=== PATIENT | female | born 1995 | race Caucasian/White ===

== ENCOUNTER 2017-10-30 18:48 | Observation (INO) ==
--- NOTE | 2017-10-30 19:39 | Emergency Department Note ---
Disposition Clinical Impression: Chest pain Qualifiers: Chest pain type: unspecified Qualified Code(s): R07.9 - Chest pain, unspecified Disposition: Home, Self-Care Condition: Good Referrals: NONE,PCP [Primary Care Provider] - Forms: ED Satisfaction Letter Time of Disposition: :33 Arrhythmia/Palpitations HPI - General Chief Complaint: ED Arrhythmia/Palpitations Stated Complaint: racing heart Time Seen by Provider: 10/30/17 19:04 Source: patient Limitations: no limitations Nursing Notes Reviewed: Yes Vital Signs Reviewed: Yes - History of Present Illness HPI Narrative: This is a 22 year-old female with history of anxiety, and clotting disorder ( "like von Willebrand's disease") who presents with palpitations ("heart racing") , which began about 45 minutes prior to arrival, shortly after patient got to work. Associated with dizziness, substernal chest tightness, dyspnea, bilateral digital paresthesias, and carpal spasm. A co-worker checked her pulse and it was 180. At the time of evaluation, symptoms are improving. Patient has been taking Adipex for the past month, with last dose about 2 hours prior to symptom onset. Patient denies any fever, cough, nausea, vomiting, leg pain or swelling. No history of DVT or PE. Although patient has a bleeding tendency, she denies any recent bleeding. Pt Subjective Complaint: "heart racing" Onset (ago): minute(s) (45) Severity: moderate Context: other (occurred during light activity) Arrhythmia History: other (stimulant use (Adipex)) - Related Data Home Medications Medication Instructions Recorded Confirmed Nuvaring Vaginal Ring 05/07/15 Stimate 05/07/15 Vicks Nyquil Cough Liquid 05/07/15 Previous Rx's Medication Instructions Recorded Amoxicillin 875 mg PO BID #20 tablet 05/07/15 Lidocaine Patch [Lidoderm 5% patch] 1 each TP DAILY PRN #10 adh..patch 09/14/17 Allergies Allergy/AdvReac Type Severity Reaction Status Date / Time ibuprofen AdvReac See Verified 10/30/17 18:53 Comments All systems ED: reviewed and negative except as stated. Constitutional: Denies: fever Cardiovascular: Reports: as per HPI, chest pain, palpitations. Denies: edema, syncope Respiratory: Reports: dyspnea. Denies: cough, hemoptysis Gastrointestinal: Denies: abdominal pain, nausea, vomiting Genitourinary: Denies: abnormal menses Musculoskeletal: Denies: back pain, neck pain Neurological: Reports: as per HPI, paresthesias. Denies: headache, weakness, vertigo Psychiatric: Reports: anxiety Past Medical History - Past Medical History Medical history: Reports: other Psychiatric history: Reports: anxiety - Social History Smoking Status: Never smoker Smokeless Tobacco Status: No Alcohol use: Reports: occasionally Drug use: Reports: none Physical Exam - General Limitations: no limitations General appearance: alert, anxious - Head Head exam: atraumatic, normocephalic - Eye Eye exam: Present: normal appearance, EOMI - ENT ENT exam: normal exam - Neck Neck exam: Present: normal inspection - Respiratory Respiratory exam: Present: normal lung sounds bilaterally. Absent: respiratory distress, wheezes - Cardiovascular Cardiovascular exam: Present: normal rhythm, tachycardia. Absent: systolic murmur, diastolic murmur, rubs, gallop - Abdominal Exam Abdominal exam: Present: soft, Non-Tender. Absent: distention, guarding, rebound, rigidity - Extremities Exam Extremities exam: Present: normal inspection. Absent: pedal edema, calf tenderness - Neurological Exam Neurological exam: Present: alert, oriented X3, CN II-XII intact. Absent: motor sensory deficit - Psychiatric Psychiatric exam: Present: anxious - Skin Skin exam: Present: warm, dry, intact Course - Reevaluation(s) Reevaluation #1: On recheck, patient seems to be resting comfortably, but she still reports some CP. Patient declined anxiety medication. Says she will try some Tylenol for pain. Time: 20:24 Reevaluation #2: Patient is comfortable-appearing, but she still complains of left upper extremity numbness and chest pain. She's only had Tylenol so far. We will treat for pain and re-assess. Time: 21:35 Reevaluation #3: Patient remains stable, comfortable-appearing, but continues to complain of chest pain as well as left upper extremity numbness. As patient has a history of Guillermina-Danlos, we will obtain chest CTA to exclude aortic dissection. Time: 01:24 - Consultations Consultation #1: Reviewed case with Dr. Dubois, and patient has been accepted for admission, provided that her CT angio chest is negative. After shift change, I will sign the case over the Dr. Caro, who will receive the results of the CT scan and determine disposition as appropriate. Time: 01:30 Vital Signs Temperature 97.7 F 10/30/17 18:53 Pulse Rate 109 10/30/17 18:53 Respiratory Rate 20 10/30/17 18:53 Blood Pressure 115/80 10/30/17 18:53 O2 Sat by Pulse Oximetry 99 10/30/17 18:53 Temperature 97.7 F 10/30/17 18:53 Pulse Rate 93 10/30/17 20:27 Respiratory Rate 22 10/30/17 20:27 Blood Pressure 129/84 10/30/17 20:27 O2 Sat by Pulse Oximetry 100 10/30/17 20:27 Oxygen Delivery Oxygen Delivery Room Air Arrhythmia/Palpitations - Lab Data Lab results reviewed: Yes I reviewed the patient's lab results. Result diagrams: 10/30/17 19:29 10/30/17 19:29 Lab Results 10/30/17 10/30/17 10/30/17 Range/Units 19:29 19:29 19:29 WBC 7.4 (4.3-11.1) K/mcL RBC 5.17 H (3.82-4.97) M/mcL Hgb 14.7 (11.5-15.4) g/dL Hct 43.1 (35.3-44.9) % MCV 83.4 (83.0-100.0) fL MCH 28.4 (28.0-33.3) pg MCHC 34.1 (31.6-35.5) g/dL RDW 12.1 (11.5-14.5) % Plt Count 275 (140-400) K/mcL MPV 10.6 (9.4-12.4) fL Immature Gran % 0.3 (0-4) % Seg Neutrophils % 63.4 % Lymphocytes % 28.0 % Monocytes % 5.1 % Eosinophils % 2.3 % Basophils % 0.9 % Neutrophils # 4.7 (1.6-8.9) K/mcL Lymphocytes # 2.1 (0.6-4.6) K/mcL Monocytes # 0.4 (0.0-1.3) K/mcL Eosinophils # 0.2 (0.0-0.6) K/mcL Basophils # 0.1 (0.0-0.2) K/mcL PT 12.6 H (9.4-12.1) Seconds INR 1.1 APTT 32.2 (26.0-36.0) Seconds D-Dimer < 215 (0-500) ng/mLFEU Sodium 138 (136-145) mEq/L Potassium 3.8 (3.5-5.1) mEq/L Chloride 108 H (98-107) mEq/L Carbon Dioxide 20 L (23-29) mEq/L BUN 14 (6-20) mg/dL Creatinine 1.07 (0.60-1.20) mg/dL Est GFR ( Amer) > 60 (> 60) Est GFR (Non-Af Amer) > 60 (> 60) BUN/Creatinine Ratio 13 (6-26) Glucose 142 H (70-105) mg/dL Calculated Osmolality 289 (280-300) Calcium 10.4 H (8.6-10.3) mg/dL Magnesium 2.0 (1.6-2.6) mg/dL Troponin I < 0.03 (< 0.04) ng/mL TSH 1.143 (0.340-5.600) mcIU/mL Serum , Qual (Negative) 10/30/17 Range/Units 19:29 WBC (4.3-11.1) K/mcL RBC (3.82-4.97) M/mcL Hgb (11.5-15.4) g/dL Hct (35.3-44.9) % MCV (83.0-100.0) fL MCH (28.0-33.3) pg MCHC (31.6-35.5) g/dL RDW (11.5-14.5) % Plt Count (140-400) K/mcL MPV (9.4-12.4) fL Immature Gran % (0-4) % Seg Neutrophils % % Lymphocytes % % Monocytes % % Eosinophils % % Basophils % % Neutrophils # (1.6-8.9) K/mcL Lymphocytes # (0.6-4.6) K/mcL Monocytes # (0.0-1.3) K/mcL Eosinophils # (0.0-0.6) K/mcL Basophils # (0.0-0.2) K/mcL PT (9.4-12.1) Seconds INR APTT (26.0-36.0) Seconds D-Dimer (0-500) ng/mLFEU Sodium (136-145) mEq/L Potassium (3.5-5.1) mEq/L Chloride (98-107) mEq/L Carbon Dioxide (23-29) mEq/L BUN (6-20) mg/dL Creatinine (0.60-1.20) mg/dL Est GFR ( Amer) (> 60) Est GFR (Non-Af Amer) (> 60) BUN/Creatinine Ratio (6-26) Glucose (70-105) mg/dL Calculated Osmolality (280-300) Calcium (8.6-10.3) mg/dL Magnesium (1.6-2.6) mg/dL Troponin I (< 0.04) ng/mL TSH (0.340-5.600) mcIU/mL Serum , Qual Negative (Negative) - Radiology Data Radiology results reviewed: Yes I reviewed the patient's radiology results. XR/XR chest 1V portable IMPRESSION: Unremarkable chest. - EKG Data EKG attestation: Yes I reviewed and interpreted this EKG. EKG shows normal: sinus rhythm, axis, intervals, QRS complexes, ST-T waves Interpretation: normal EKG
[2017-10-30 19:41] LABS: Basophils # 0.1 K/mcL (0.0-0.2); Basophils % 0.9 %; Eosinophils # 0.2 K/mcL (0.0-0.6); Eosinophils % 2.3 %; Hematocrit 43.1 % (35.3-44.9); Hemoglobin 14.7 g/dL (11.5-15.4); Immature Granulocytes % 0.3 % (0-4); Lymphocytes # 2.1 K/mcL (0.6-4.6); Mean Corpuscular HGB Conc 34.1 g/dL (31.6-35.5); Mean Corpuscular Hemoglobin 28.4 pg (28.0-33.3); Mean Corpuscular Volume 83.4 fL (83.0-100.0); Mean Platelet Volume 10.6 fL (9.4-12.4); Monocytes # 0.4 K/mcL (0.0-1.3); Monocytes % 5.1 %; Neutrophils # 4.7 K/mcL (1.6-8.9); Platelet Count 275 K/mcL (140-400); Red Blood Count 5.17 M/mcL (3.82-4.97); Red Cell Distribution Width 12.1 % (11.5-14.5); Segmented Neutrophils % 63.4 %
[2017-10-30 19:49] LABS: INR 1.1; Prothrombin Time 12.6 Seconds (9.4-12.1)
[2017-10-30 19:51] LABS: Activated Partial Thrombo Time 32.2 Seconds (26.0-36.0)
[2017-10-30 19:53] LABS: D-Dimer < 215 ng/mLFEU (0-500)
[2017-10-30 20:03] LABS: BUN/Creatinine Ratio 13 (6-26); Blood Urea Nitrogen 14 mg/dL (6-20); Calcium 10.4 mg/dL (8.6-10.3); Carbon Dioxide 20 mEq/L (23-29); Chloride 108 mEq/L (98-107); Glucose 142 mg/dL (70-105); Osmolality,Calculated 289 (280-300); Potassium 3.8 mEq/L (3.5-5.1); Sodium 138 mEq/L (136-145); Troponin I < 0.03 ng/mL (< 0.04); eGFR For African Americans > 60 (> 60); eGFR For Non-African Americans > 60 (> 60)
[2017-10-30 20:16] LABS: Thyroid Stimulating Hormone 1.143 mcIU/mL (0.340-5.600)
[2017-10-30] MEDS ORDERED: *HR* Nalbuphine 10 MG/ML AMPUL IVP STA (21:37)
[2017-10-31] MEDS ORDERED: *HR* Nalbuphine 10 MG/ML AMPUL IVP STA (01:22)
[2017-10-31] MEDS ORDERED: Isovue-370 500 ML INFUS..BTL IV ONE (01:23)
--- NOTE | 2017-10-31 01:29 | Internal Med History&Physical ---
Date of Encounter: 10/31/17 Time of Encounter: 01:28 Internal Medicine - H&P: HPI History of present illness: Ms. Carr is a 22 year old female with history of anxiety, and clotting disorder ?? Willebrand's disease who presents with palpitations which began about 45 minutes prior to arrival, shortly after patient got to work. Associated with dizziness, substernal chest tightness, dyspnea, bilateral digital paresthesias, A co-worker checked her pulse and it was 180. At the time of evaluation, symptoms are improving. Patient has been taking Adipex for weight loss for the last past month. The patient heart rate improved to mid 70s and her CTA was unremarkable Past Med Surg Social Fam HX - Past Medical History Medical history: other Additional medical history: clotting disorder Psychiatric history: anxiety - Past Surgical History Additional surgical history: Dental surgery. - Social History Smoking Status: Never smoker Smokeless Tobacco Status: No Alcohol use: occasionally Drug use: none Internal Medicine - H&P: Meds Amoxicillin 875 mg PO BID #20 tablet 05/07/15 [Rx] Nuvaring Vaginal Ring 05/07/15 [History] Stimate 05/07/15 [History] Vicks Nyquil Cough Liquid 05/07/15 [History] Lidocaine Patch [Lidoderm 5% patch] 1 each TP DAILY PRN #10 adh..patch 09/14/17 [Rx] 3 Allergy/AdvReac Type Severity Reaction Status Date / Time ibuprofen AdvReac See Verified 10/30/17 18:53 Comments All Systems PM: A 10-system review of systems was performed and is negative for pertinent findings except as documented above in the HPI. - Constitutional Constitutional: no chills, no fever(s), no night sweats - Cardiovascular Cardiovascular ROS IM: chest pain, lightheadedness, palpitations, no diaphoresis , no dyspnea, no syncope - Respiratory Respiratory: no cough, no dyspnea, no wheezing, no excessive phlegm production - Gastrointestinal Gastrointestinal: no abdominal pain, no diarrhea, no hematemesis, no hematochezia, no melena, no nausea, no vomiting - Neurological Neurological ROS: no confusion, no convulsions, no focal weakness, no numbness, no tingling, no tremor(s) - Constitutional Vitals: Temp Pulse Resp BP Pulse Ox 97.7 F 93 22 129/84 100 10/30/17 18:53 10/30/17 20:27 10/30/17 20:27 10/30/17 20:27 10/30/17 20:27 General appearance: Present: A&O X 3 - Head Head exam: Present: atraumatic, normocephalic - Neck Neck exam general surgery: Present: supple, trachea midline. Absent: lymphadenopathy - Respiratory Respiratory exam: Present: CTAB. Absent: accessory muscle use, rales, rhonchi, wheezes - Cardiovascular Cardiovascular exam: Present: RRR, +S1, +S2. Absent: diastolic murmur, gallop, rubs, systolic murmur - GI/Abdominal GI/Abdominal exam: Present: normal bowel sounds, soft, no peritoneal signs. Absent: distended, tenderness - Extremities Exam Extremities exam: Present: warm, radial pulses palpable and symmetrical. Absent : calf tenderness, cyanotic, pedal edema Internal Med - H&P Results - Labs CBC & Chem 7: 10/30/17 19:29 10/30/17 19:29 Labs: Short CBC 10/30/17 Range/Units 19:29 WBC 7.4 (4.3-11.1) K/mcL Hgb 14.7 (11.5-15.4) g/dL Hct 43.1 (35.3-44.9) % Plt Count 275 (140-400) K/mcL Neutrophils # 4.7 (1.6-8.9) K/mcL BMP 10/30/17 19:29 Sodium 138 Potassium 3.8 Chloride 108 H Carbon Dioxide 20 L BUN 14 Creatinine 1.07 Glucose 142 H Calcium 10.4 H Cardiac Enzymes 10/30/17 Range/Units 19:29 Troponin I < 0.03 (< 0.04) ng/mL - Impressions ITS Impressions Chest X-Ray 10/30/17 19:17 IMPRESSION: Unremarkable chest. D/ / Wilmar Cruz MD / Wilmar Cruz MD Interpreting Provider: Wilmar Cruz MD - Assessment and plan (1) Chest pain Current Visit: Yes Status: Acute Assessment and plan: ASSESSMENT: - palpitation associated with CP most likely 2/2 panic attack or as an advers event for the phentramin PLAN: - cardiac enzymes x 2 q 8 hr - EKG now and in AM - ASA - O2 by NC to keep SpO2 greater than 92% - UA - CBCD, BMP in AM - Fasting lipids - Tylenol 650 mg PO q 4-6 hr PRN headache - Heparin 5000 U SQ BID - 2D Echo Qualifiers: Chest pain type: unspecified Qualified Code(s): R07.9 - Chest pain, unspecified (2) DVT prophylaxis Current Visit: Yes Status: Acute Assessment and plan: Heparin 5000 BID - Time Spent With Patient Total time spent is greater than 50% in coordination of care (as documented) at patient's floor/unit and/or counseling patient:
[2017-10-31] MEDS ORDERED: Ondansetron 4 MG/2 ML VIAL IVP PRN (01:45)
[2017-10-31] MEDS ORDERED: Naloxone 0.4 MG/ML INJ IVP PRN (04:25)
[2017-10-31 05:38] LABS: Prothrombin Time 11.8 Seconds (9.4-12.1)
[2017-10-31 05:41] LABS: Activated Partial Thrombo Time 29.2 Seconds (26.0-36.0)
[2017-10-31 05:45] LABS: Chol/HDL Ratio 4.2 (0-4.9)
[2017-10-31] MEDS ORDERED: Acetaminophen 325 MG TABLET PO PRN (08:04)
[2017-10-31 08:31] LABS: Bilirubin,Urine Negative (Negative); Blood,Urine Negative (Negative); Clarity,Urine Clear (Clear); Color,Urine Yellow (Yellow); Glucose,Urine (UA) Normal (Normal); Ketones,Urine Negative (Negative); Leukocyte Esterase,Urine Small (Negative); Nitrite,Urine Negative (Negative); PH,Urine 6.5 pH Units (5.0-8.0); Protein,Urine Negative (Neg-Trace); Specific Gravity,Urine > 1.030 (1.010-1.025); Urobilinogen,Urine Normal (Normal)
[2017-10-31 08:33] LABS: Bacteria,Urine Few per hpf (None-Few); Hyaline Casts,Urine None Seen per lpf (None-Few); RBC,Urine 0-3 per hpf (0-3); Squamous Epithelial Cell,Urine Many per lpf (None-Few)
[2017-10-31 11:08] VITALS: BP 105/66
[2017-10-31] MEDS ORDERED: Ibuprofen 400 MG TABLET PO ONE (12:05)
--- NOTE | 2017-10-31 13:22 | Discharge Summary ---
- NOTES TO OUTPATIENT PROVIDER Notes to Outpatient Provider: Patient presented with complains of palpitations and chest pain, all related to the use of adipex for weight loss. CBC, Chem, Mag , LFT, Lipids, Coagulation panel all negative. EKG was sinus tachycardia. Tropos negative X3. ECHO was WNL without any valvular abnormalities. CT angiogram of the chest was normal. No suspicion for ACS. Educated to stop adipex, follow up with PCP Orders not resulted at time of discharge: Pending orders 10/31/17 16:30 Troponin I Q6H 11/01/17 04:00 Complete Blood Count [HEME] AM 0400 Comprehensive Metabolic Panel AM 0400 Magnesium AM 0400 Phosphorous AM 0400 Date of Encounter: 10/31/17 Time of Encounter: 13:20 - Discharge Diagnosis (1) Medication reaction Priority: Primary Status: Acute Qualifiers: Encounter type: initial encounter Qualified Code(s): T50.905A - Adverse effect of unspecified drugs, medicaments and biological substances, initial encounter (2) Chest pain Priority: Primary Status: Acute Qualifiers: Chest pain type: unspecified Qualified Code(s): R07.9 - Chest pain, unspecified (3) DVT prophylaxis Priority: Primary Status: Acute (4) Tachycardia Priority: Primary Status: Resolved Hospital course: Ms. Carr is a 22 year old female with PMH of Von Willebrands's disease (self- reported), Patient presented with complains of palpitations and chest pain, associated numbness on the L arm, all related to the use of adipex for weight loss. CBC, Chem, Mag, LFT, Lipids, Coagulation panel all negative. EKG was sinus tachycardia. Tropos negative X3. ECHO was WNL without any valvular abnormalities. CT angiogram of the chest was normal. No suspicion for ACS. She also had other side effects of the medication including dry mouth and abnormal taste. EKG in the ER was sinus. Educated about side effects of the medication and encouraged to stop adipex and find other means of weight loss, follow up with PCP Discharge discussed with: patient, family, nurse - Time Spent with Patient Total time spent providing and/or coordinating discharge services: Less than 30 minutes - Discharge Medications Home Medications: Celecoxib [Celebrex] 200 mg PO DAILY PRN 10/31/17 [History] Desmopressin Acetate [Stimate] 2 spray NS DAILY PRN 10/31/17 [History] Medroxyprogesterone Acetate [DEPO-Provera] 150 mg IM [id number] 10/31/17 [History] Omeprazole [PriLOSEC] 40 mg PO DAILY 10/31/17 [History] Sertraline [Zoloft] 25 mg PO DAILY 10/31/17 [History] Tranexamic Acid [Lysteda] 2,600 mg PO TID PRN 10/31/17 [History] Allergies/Adverse Reactions: 3 Allergy/AdvReac Type Severity Reaction Status Date / Time sulfamethoxazole Allergy See Verified 10/31/17 10:50 [From Bactrim] Comments trimethoprim [From Bactrim] Allergy See Verified 10/31/17 10:50 Comments diphenhydramine AdvReac Rash Verified 10/31/17 10:51 ibuprofen AdvReac See Verified 10/30/17 18:53 Comments nalbuphine [From Nubain] AdvReac Difficulty Verified 10/31/17 10:51 Breathing Date of admission: 10/31/17 03:27 Primary care physician: PCP NONE Discharging clinician: Tyler Mosley Anticipated date of discharge: 10/31/17 - Constitutional Vitals: Temp Pulse Resp BP Pulse Ox 98.2 F 70 16 105/66 98 10/31/17 11:04 10/31/17 11:04 10/31/17 11:04 10/31/17 11:04 10/31/17 11:04 General appearance: Present: A&O X 3, pleasant, no acute distress - Head Head exam: Present: atraumatic, normocephalic - Eye Eye exam: Present: PERRL, conjuntiva pink, sclera anicteric Pupils: Present: PERRL - Neck Neck exam general surgery: Present: supple, trachea midline. Absent: lymphadenopathy - Respiratory Respiratory exam: Present: CTAB. Absent: accessory muscle use, rales, rhonchi, wheezes - Cardiovascular Cardiovascular exam: Present: RRR, +S1, +S2. Absent: diastolic murmur, gallop, rubs, systolic murmur - GI/Abdominal GI/Abdominal exam: Present: normal bowel sounds, soft, no peritoneal signs. Absent: distended, tenderness - Extremities Exam Extremities exam: Present: warm, radial pulses palpable and symmetrical. Absent : calf tenderness, cyanotic, pedal edema - Neurological Exam Neurological exam: Present: alert, CN II-XII intact, oriented X3, no focal deficits. Absent: pronater drift, facial droop, speech deficit - Skin Skin exam: Present: dry, intact - Patient Status Disposition: Home, Self-Care Condition: Good Functional capacity at discharge: independent ambulation Overall status at discharge: patient is back to baseline - Discharge Instructions Follow Up With: NONE,PCP [Primary Care Provider] - - Diet and Activity Activity: resume usual activities as tolerated Diet: regular diet
[2017-10-31] MEDS ORDERED: *HR* Heparin 5,000 UNIT/ML VIAL SQ SCH (18:00)
--- NOTE | 2017-11-02 17:46 | Electrocardiograph Report ---
[place] [id number] Test Date: 2017-10-30 Pat Name: Zee Carr Department: 103 Room: 2A Gender: F Social Science Professor: MARK : 1995 Requested By: Mina Baum Order Number: [id number] Reading MD: Chadwick Sargent Measurements Intervals [place] Rate: 85 P: -1 AR: 138 QRS: 35 QRSD: 81 T: 9 QT: 349 QTc: 391 Interpretive Statements SINUS RHYTHM Electronically Signed On 11-02-2017 17:45:27 EDT by Chadwick Sargent
== END 2017-10-31 13:46 | disposition home or self-care (01) ==
LOC: EMEROO 18:48 → 2ANU 18:48 → SUATTDRO 10-31 03:27 → 2ANU 10-31 04:02
PROVIDERS: ADMIT Internal Medicine Nephrology; ATTEND Internal Medicine

== ENCOUNTER 2017-11-03 15:47 | Observation (INO) ==
--- NOTE | 2017-11-03 16:39 | Emergency Department Note ---
Disposition Clinical Impression: Tachycardia, Lightheadedness Chest pain Qualifiers: Chest pain type: unspecified Qualified Code(s): R07.9 - Chest pain, unspecified Disposition: Admitted As Inpatient Condition: Good Referrals: NONE,PCP [Primary Care Provider] - Forms: ED Satisfaction Letter Time of Disposition: 21:00 Chest Pain HPI - General Chief Complaint: ED Chest Pain Stated Complaint: "CP,sent from [facility]" Time Seen by Provider: 11/03/17 16:12 Source: patient, family (Mother) Mode of arrival: ambulatory Limitations: no limitations Vital Signs Reviewed: Yes Nursing Notes Reviewed: Yes - History of Present Illness HPI Narrative: 22-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 Symptoms have been ongoing for the past 5 days. Patient reports recently finishing a 3 week course of Adipex which she discontinued on the day of onset. She was recently seen and evaluated here in emergency department and was admitted for observation each also included echocardiogram and CT angiogram of the chest as an inpatient, they were unremarkable. Patient continues to report constant chest pressure that is intermittently sharp and worse with exertion. Some associated shortness of breath but denies any nausea or vomiting. She reported some lightheadedness but denies any syncope Denies any recent cough congestion or illness. She denies any other symptoms. She schedule follow with her primary care physician later this week. She feels her heart racing especially with exertion. She reports a history of anxiety and that was what she was diagnosed on discharge. The symptoms have persisted since her discharge from the hospital. She states while sitting driving here to ED her heart rate was 120. No history of thyroid issues. Patient does not smoke tobacco. No family history of cardiac ischemic disease. Severity scale (1-10): 4 - Related Data Home Medications Medication Instructions Recorded Confirmed Celecoxib [Celebrex] 200 mg PO DAILY PRN 10/31/17 11/03/17 Desmopressin Acetate [Stimate] 2 spray NS DAILY PRN 10/31/17 11/03/17 Medroxyprogesterone Acetate 150 mg IM [id number] 10/31/17 11/03/17 [DEPO-Provera] Omeprazole [PriLOSEC] 40 mg PO DAILY 10/31/17 11/03/17 Tranexamic Acid [Lysteda] 2,600 mg PO TID PRN 10/31/17 11/03/17 Allergies Allergy/AdvReac Type Severity Reaction Status Date / Time sulfamethoxazole Allergy See Verified 11/03/17 16:00 [From Bactrim] Comments trimethoprim [From Bactrim] Allergy See Verified 11/03/17 16:00 Comments diphenhydramine AdvReac Rash Verified 11/03/17 16:00 ibuprofen AdvReac See Verified 11/03/17 16:00 Comments nalbuphine [From Nubain] AdvReac Difficulty Verified 11/03/17 16:00 Breathing All systems ED: reviewed and negative except as stated. Review of Systems: As Per HPI Constitutional: Denies: fever, chills, weakness Cardiovascular: Reports: chest pain, palpitations. Denies: dyspnea on exertion Respiratory: Denies: cough, dyspnea Gastrointestinal: Denies: abdominal pain, nausea, vomiting Musculoskeletal: Denies: back pain Integumentary: Denies: rash, abrasion Neurological: Reports: headache. 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 Absent: rash - Respiratory Respiratory exam: Present: normal lung sounds bilaterally. Absent: respiratory distress, wheezes - Cardiovascular Cardiovascular exam: Present: regular rate, normal rhythm, normal heart sounds - Expanded Cardiovascular Exam Peripheral pulses: 2+: radial (R), radial (L) - Abdominal Exam Abdominal exam: Present: soft, Non-Tender, normal bowel sounds. Absent: tenderness, distention, guarding, rebound, rigidity - Extremities Exam Extremities exam: Present: normal inspection, full ROM, normal capillary refill. Absent: tenderness, pedal edema - Back Exam Back exam: Present: normal inspection, full ROM. Absent: tenderness - Neurological Exam Neurological exam: Present: alert, oriented X3, CN II-XII intact - Expanded Neurological Exam Patient oriented to: Present: person, place, time Speech: Present: fluid speech - Psychiatric Psychiatric exam: Present: normal mood, anxious - Skin Skin exam: Present: warm, dry, intact, normal color. Absent: rash Course Course Narrative: Patient presents with reports of persistent palpitations and chest pain for the past several days. She was recently admitted with full workup of echocardiogram EKG, cardiac enzymes in echocardiogram. Those were normal. Patient reports and for tachycardia and palpitations at rest. She does have a history of anxiety and does not believe this is associated with it. Recent completion of Adipex which she has not taken since initial symptom presentation. No cardiac ischemic disease history. Patient does not take control. At this time her exam is otherwise unremarkable. She does complaining of some lightheadedness and a headache that has been persistent. Denies any room spinning her dizziness. No neck tenderness or rigidity. Chest pain workup initiated including a TSH. - Reevaluation(s) Reevaluation #1: Labs are otherwise unremarkable. Her TSH is normal. Given her persistent headache will obtain a CT of the head for any abnormalities associated with her Guillermina Danlos. Will administer Ativan to help with the chest pain. Her heart rate is 80-90s. Neurologically intact. Allergies to ibuprofen and Benadryl, offered her IV medication but prefers PO will attempt to control her symptoms with Tylenol and Ativan. Reevaluation #2: CT of the head is unremarkable. Patient did report some improvement of her symptoms. We attempted to ambulate her and she merely had returned of symptoms including chest pain some shortness of breath with some lightheadedness. Her heart rate also went from 60 to 120. Given her persistent symptoms she would benefit further evaluation with admission. She is in agreement with this plan. Impression is symptomatic tachycardia, chest pain and lightheadedness. Review of her prior admission and she had a normal echocardiogram. The CT of the chest is not significant for pulmonary embolism or dissection. Her D dimer was less 215. was normal at that time. Her chest pains undifferentiated at this time but does not reveal any emergent conditions at this time. - Consultations Consultation #1: Spoke with on-call hospitalist damien Jernigan to admit for chest pain, tachycardia, and lightheadedness. No further orders at this time. Vital Signs Temperature 98.1 F 11/03/17 15:57 Pulse Rate 122 11/03/17 15:57 Respiratory Rate 16 11/03/17 15:57 Blood Pressure 115/71 11/03/17 15:57 O2 Sat by Pulse Oximetry 98 11/03/17 15:57 Temperature 98.1 F 11/03/17 15:57 Pulse Rate 81 11/03/17 20:54 Respiratory Rate 20 11/03/17 20:54 Blood Pressure 105/68 11/03/17 20:54 O2 Sat by Pulse Oximetry 98 11/03/17 20:54 Oxygen Delivery Oxygen Delivery Room Air Chest Pain - MDM Narrative Medical decision making narrative: Patient was discussed with my attending physician who agrees with ED management and final disposition. They independently evaluated the patient. Please refer to their attestation to this encounter for additional information. This note was generated by [employer] voice recognition software and as a result grammatical or spelling errors may occur using this program. - Medical Records Medical records reviewed: Yes I reviewed the patient's medical records. - Lab Data Lab results reviewed: Yes I reviewed the patient's lab results. Result diagrams: 11/03/17 16:37 11/03/17 16:37 Lab Results 11/03/17 11/03/17 11/03/17 Range/Units 16:37 16:37 19:04 WBC 6.1 (4.3-11.1) K/mcL RBC 5.01 H (3.82-4.97) M/mcL Hgb 14.3 (11.5-15.4) g/dL Hct 42.2 (35.3-44.9) % MCV 84.2 (83.0-100.0) fL MCH 28.5 (28.0-33.3) pg MCHC 33.9 (31.6-35.5) g/dL RDW 12.1 (11.5-14.5) % Plt Count 256 (140-400) K/mcL MPV 10.7 (9.4-12.4) fL Immature Gran % 0.3 (0-4) % Seg Neutrophils % 54.6 % Lymphocytes % 33.6 % Monocytes % 6.6 % Eosinophils % 4.1 % Basophils % 0.8 % Neutrophils # 3.3 (1.6-8.9) K/mcL Lymphocytes # 2.1 (0.6-4.6) K/mcL Monocytes # 0.4 (0.0-1.3) K/mcL Eosinophils # 0.3 (0.0-0.6) K/mcL Basophils # 0.1 (0.0-0.2) K/mcL Sodium 139 (136-145) mEq/L Potassium 3.7 (3.5-5.1) mEq/L Chloride 110 H (98-107) mEq/L Carbon Dioxide 22 L (23-29) mEq/L BUN 12 (6-20) mg/dL Creatinine 0.91 (0.60-1.20) mg/dL Est GFR ( Amer) > 60 (> 60) Est GFR (Non-Af Amer) > 60 (> 60) BUN/Creatinine Ratio 13 (6-26) Glucose 151 H (70-105) mg/dL Calculated Osmolality 291 (280-300) Calcium 9.8 (8.6-10.3) mg/dL Troponin I < 0.03 (< 0.04) ng/mL TSH 1.058 (0.340-5.600) mcIU/mL Urine Color Yellow (Yellow) Urine Clarity Clear (Clear) Urine pH 6.5 (5.0-8.0) pH Units Ur Specific [place] 1.017 (1.010-1.025) Urine Protein Negative (Neg-Trace) mg/dL Urine Glucose (UA) Normal (Normal) mg/dL Urine Ketones Negative (Negative) mg/dL Urine Blood Negative (Negative) Urine Nitrite Negative (Negative) Urine Bilirubin Negative (Negative) Urine Urobilinogen Normal (Normal) mg/dL Ur Leukocyte Esterase Small H (Negative) Urine Microscopic RBC 0-3 (0-3) per hpf Urine Microscopic WBC 3-5 H (0-3) per hpf Ur Squamous Epith Cells Many H (None-Few) per lpf Urine Bacteria Few (None-Few) per hpf Hyaline Casts None Seen (None-Few) per lpf Ur Culture Indicated? NO. A (NO) - Radiology Data Radiology results reviewed: Yes I reviewed the patient's radiology results. Chest X-Ray 11/03/17 16:05 IMPRESSION: No acute cardiopulmonary disease. D/ / Marty Jett MD / Marty Jett MD Interpreting Provider: Marty Jett MD Head CT 11/03/17 18:45 IMPRESSION: No acute intracranial abnormality. D/ / Brittany Velez MD / Brittany Velez MD Interpreting Provider: Brittany Velez MD - EKG Data EKG attestation: Yes I reviewed and interpreted this EKG. EKG results narrative: EKG performed 1604 sinus tachycardia 100 beats per minute, normal axis, no ST elevation or depression, intervals within normal limits. Compared to prior EKG performed 10/30/2017 shows similar consistent findings of normal sinus rhythm. No acute ischemic changes. Heart Score - Score History: Slightly Suspicious EKG: Normal Age: Less than 45 Risk Factors: No risk factors known Troponin: Less than normal limit HEART Score Total: 0 Attestation Statement - Attestation Attestation: I, Doron Casarez DO, examined this patient [id number] and my medical decision-making was reviewed with (Juan Chilel DO , Resident Physician. I agree with the documented findings, disposition and treatment plan as described except to the extent set forth below. Please see my progress notes for details.
[2017-11-03 16:56] LABS: Basophils # 0.1 K/mcL (0.0-0.2); Basophils % 0.8 %; Eosinophils # 0.3 K/mcL (0.0-0.6); Eosinophils % 4.1 %; Hematocrit 42.2 % (35.3-44.9); Hemoglobin 14.3 g/dL (11.5-15.4); Immature Granulocytes % 0.3 % (0-4); Lymphocytes # 2.1 K/mcL (0.6-4.6); Lymphocytes % 33.6 %; Mean Corpuscular HGB Conc 33.9 g/dL (31.6-35.5); Mean Corpuscular Hemoglobin 28.5 pg (28.0-33.3); Mean Corpuscular Volume 84.2 fL (83.0-100.0); Mean Platelet Volume 10.7 fL (9.4-12.4); Monocytes # 0.4 K/mcL (0.0-1.3); Monocytes % 6.6 %; Neutrophils # 3.3 K/mcL (1.6-8.9); Platelet Count 256 K/mcL (140-400); Red Blood Count 5.01 M/mcL (3.82-4.97); Red Cell Distribution Width 12.1 % (11.5-14.5); Segmented Neutrophils % 54.6 %
[2017-11-03 17:12] LABS: Troponin I < 0.03 ng/mL (< 0.04)
[2017-11-03 17:13] LABS: BUN/Creatinine Ratio 13 (6-26); Blood Urea Nitrogen 12 mg/dL (6-20); Calcium 9.8 mg/dL (8.6-10.3); Carbon Dioxide 22 mEq/L (23-29); Chloride 110 mEq/L (98-107); Glucose 151 mg/dL (70-105); Osmolality,Calculated 291 (280-300); Potassium 3.7 mEq/L (3.5-5.1); Sodium 139 mEq/L (136-145); eGFR For African Americans > 60 (> 60); eGFR For Non-African Americans > 60 (> 60)
[2017-11-03 17:26] LABS: Thyroid Stimulating Hormone 1.058 mcIU/mL (0.340-5.600)
[2017-11-03] MEDS ORDERED: 0.9 % Sodium Chloride 1,000 ML IVC ONE (18:43)
[2017-11-03] MEDS ORDERED: Prochlorperazine 10 MG/2 ML VIAL IVP ONE (18:46)
[2017-11-03] MEDS ORDERED: *HR* LORazepam 2 MG/ML VIAL IVP ONE (18:46)
[2017-11-03] MEDS ORDERED: *HR* LORazepam 0.5 MG TABLET PO ONE (18:58)
[2017-11-03 19:10] LABS: Bilirubin,Urine Negative (Negative); Blood,Urine Negative (Negative); Clarity,Urine Clear (Clear); Color,Urine Yellow (Yellow); Glucose,Urine (UA) Normal (Normal); Ketones,Urine Negative (Negative); Leukocyte Esterase,Urine Small (Negative); Nitrite,Urine Negative (Negative); PH,Urine 6.5 pH Units (5.0-8.0); Protein,Urine Negative (Neg-Trace); Specific Gravity,Urine 1.017 (1.010-1.025); Urobilinogen,Urine Normal (Normal)
[2017-11-03 19:11] LABS: Bacteria,Urine Few per hpf (None-Few); Hyaline Casts,Urine None Seen per lpf (None-Few); RBC,Urine 0-3 per hpf (0-3); Squamous Epithelial Cell,Urine Many per lpf (None-Few)
--- NOTE | 2017-11-03 19:30 | Emergency Department Note ---
Disposition Clinical Impression: Chest pain, Tachycardia, Lightheadedness Disposition: Admitted As Inpatient Condition: Fair Referrals: NONE,PCP [Primary Care Provider] - Forms: ED Satisfaction Letter Time of Disposition: 20:59 General Adult HPI - General Chief complaint: ED Chest Pain Stated complaint: "CP,sent from [facility]" Time Seen by Provider: 11/03/17 16:12 Source: patient, family (Mother) Mode of arrival: ambulatory Limitations: no limitations - History of Present Illness Pain Scale: 4 - Related Data Home Medications Medication Instructions Recorded Confirmed Celecoxib [Celebrex] 200 mg PO DAILY PRN 10/31/17 11/03/17 Desmopressin Acetate [Stimate] 2 spray NS DAILY PRN 10/31/17 11/03/17 Medroxyprogesterone Acetate 150 mg IM [id number] 10/31/17 11/03/17 [DEPO-Provera] Omeprazole [PriLOSEC] 40 mg PO DAILY 10/31/17 11/03/17 Tranexamic Acid [Lysteda] 2,600 mg PO TID PRN 10/31/17 11/03/17 Allergies Allergy/AdvReac Type Severity Reaction Status Date / Time sulfamethoxazole Allergy See Verified 11/03/17 16:00 [From Bactrim] Comments trimethoprim [From Bactrim] Allergy See Verified 11/03/17 16:00 Comments diphenhydramine AdvReac Rash Verified 11/03/17 16:00 ibuprofen AdvReac See Verified 11/03/17 16:00 Comments nalbuphine [From Nubain] AdvReac Difficulty Verified 11/03/17 16:00 Breathing Past Medical History - Past Medical History Medical history: Reports: other Psychiatric history: Reports: anxiety 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 - Social History Smoking Status: Never smoker Smokeless Tobacco Status: No Alcohol use: Reports: occasionally Drug use: Reports: none Physical Exam - General Limitations: no limitations General appearance: alert, in no apparent distress Course Vital Signs Temperature 98.1 F 11/03/17 15:57 Pulse Rate 122 11/03/17 15:57 Respiratory Rate 16 11/03/17 15:57 Blood Pressure 115/71 11/03/17 15:57 O2 Sat by Pulse Oximetry 98 11/03/17 15:57 Temperature 98.1 F 11/03/17 15:57 Pulse Rate 81 11/03/17 20:54 Respiratory Rate 20 11/03/17 20:54 Blood Pressure 105/68 11/03/17 20:54 O2 Sat by Pulse Oximetry 98 11/03/17 20:54 Oxygen Delivery Oxygen Delivery Room Air Medical Decision Making - Lab Data Result diagrams: 11/03/17 16:37 11/03/17 16:37 Lab Results 11/03/17 11/03/17 11/03/17 Range/Units 16:37 16:37 19:04 WBC 6.1 (4.3-11.1) K/mcL RBC 5.01 H (3.82-4.97) M/mcL Hgb 14.3 (11.5-15.4) g/dL Hct 42.2 (35.3-44.9) % MCV 84.2 (83.0-100.0) fL MCH 28.5 (28.0-33.3) pg MCHC 33.9 (31.6-35.5) g/dL RDW 12.1 (11.5-14.5) % Plt Count 256 (140-400) K/mcL MPV 10.7 (9.4-12.4) fL Immature Gran % 0.3 (0-4) % Seg Neutrophils % 54.6 % Lymphocytes % 33.6 % Monocytes % 6.6 % Eosinophils % 4.1 % Basophils % 0.8 % Neutrophils # 3.3 (1.6-8.9) K/mcL Lymphocytes # 2.1 (0.6-4.6) K/mcL Monocytes # 0.4 (0.0-1.3) K/mcL Eosinophils # 0.3 (0.0-0.6) K/mcL Basophils # 0.1 (0.0-0.2) K/mcL Sodium 139 (136-145) mEq/L Potassium 3.7 (3.5-5.1) mEq/L Chloride 110 H (98-107) mEq/L Carbon Dioxide 22 L (23-29) mEq/L BUN 12 (6-20) mg/dL Creatinine 0.91 (0.60-1.20) mg/dL Est GFR ( Amer) > 60 (> 60) Est GFR (Non-Af Amer) > 60 (> 60) BUN/Creatinine Ratio 13 (6-26) Glucose 151 H (70-105) mg/dL Calculated Osmolality 291 (280-300) Calcium 9.8 (8.6-10.3) mg/dL Troponin I < 0.03 (< 0.04) ng/mL TSH 1.058 (0.340-5.600) mcIU/mL Urine Color Yellow (Yellow) Urine Clarity Clear (Clear) Urine pH 6.5 (5.0-8.0) pH Units Ur Specific [place] 1.017 (1.010-1.025) Urine Protein Negative (Neg-Trace) mg/dL Urine Glucose (UA) Normal (Normal) mg/dL Urine Ketones Negative (Negative) mg/dL Urine Blood Negative (Negative) Urine Nitrite Negative (Negative) Urine Bilirubin Negative (Negative) Urine Urobilinogen Normal (Normal) mg/dL Ur Leukocyte Esterase Small H (Negative) Urine Microscopic RBC 0-3 (0-3) per hpf Urine Microscopic WBC 3-5 H (0-3) per hpf Ur Squamous Epith Cells Many H (None-Few) per lpf Urine Bacteria Few (None-Few) per hpf Hyaline Casts None Seen (None-Few) per lpf Ur Culture Indicated? NO. A (NO) Attestation Statement - Attestation Attestation: I, Doron Casarez DO, examined this patient [id number] and my medical decision-making was reviewed with Juan Chilel DO Resident Physician. I agree with the documented findings, disposition and treatment plan as described except to the extent set forth below. Please see my progress notes for details. . 22-year-old female presents emergency room for evaluation of dizziness lightheadedness chest pain shortness of breath it has been going on . Patient is been seen and evaluated and admitted for similar issue within the last week. She has had persistence of the pain and symptoms. Was initially saw the patient may have had anxiety versus palpitations. She denies any significant life stressors. She did stop using the medication Adipex 3 weeks prior to the onset of the palpitations. Patient denies any drugs of abuse. Denies any recent illnesses fevers chills nausea vomiting or diarrhea headache vision changes at this time. Her main complaint is chest discomfort shortness of breath that is chronic at this point. Previous evaluation here in the emergency room as well as admission process was reviewed. Patient negative CT angiography the chest. She also had negative echocardiogram of the heart. 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 She denies any trauma injury to worry about aortic root injury or trauma. Patient otherwise clinical stable. Patient's alert she is oriented she speaks in full sentences she does not appear to be in any distress at this time. Lungs are clear heart is regular abdomen is soft. She was tachycardic up into the 1 3140 range prior to coming into the emergency room but seems to have stabilized at this time. Patient will have screening laboratory workup again here today CT of the head EKG to establish any intracranial related pathology considering the CT angiography of the echocardiogram are all unremarkable the symptoms have not changed. Patient will also be given fluids nausea medication some Ativan here in the emergency room symptomatic control. Otherwise is no other acute clinical findings on physical exam and workup at this point. Patient is otherwise currently stable. See detailed documentation of the physical exam, medical intervention, medical decision-making and disposition in the resident physician's note. 2044 Patient's labs are completely unremarkable. Review the CT angiography as well as the echocardiogram from the previous evaluation were benign. Thyroid function is normal. Patient has no acute abnormalities on her vital signs outside of intermittent tachycardia. CT imaging of the head was completed with concern for possible cranial pathology including normal pressure hydrocephalus or mass. CT imaging that is unremarkable as well. Lengthy discussion was had with the patient and family at the bedside about potential disposition: Discharge home. Patient ended on the emergency room and just with walking or patient's heart rate went up to 110 from 65. Etiology to the tachycardia and the symptoms that were worsened with the ambulation are unknown at this point. Patient had persistent or worsening chest discomfort pain and lightheadedness while she was walking. Patient will be admitted again at this time for further evaluation considers his persistent symptoms have not responded to medical intervention has not been seen in the outpatient setting. Patient is otherwise currently stable and informed of the projected course of care plan. She otherwise does not require any further intervention or workup at this point. Admission process established.
--- NOTE | 2017-11-03 22:23 | Internal Med History&Physical ---
Date of Encounter: 11/03/17 Time of Encounter: 22:22 Internal Medicine - H&P: HPI Chief complaint: Persistent Chest pain, headache Admitted From: Home Plans for Post Hospital Care: Home History of present illness: Ms. Carr is a 22 year old female with history of Ehler Danlos syndrome, ? bleeding disorder and can not have NSAIDS got admitted for persistent chest pain started this Thursday and patient got admitted to [facility] and had serial troponin, echocardiogram and CT angiogram with no acute finding and patient was discharged to home. But patient continued to have persistent chest pain at rest 4/10 and on exertion 8 x 10 associated with dizziness, palpitation and shortness of breath. During last admission patient had tingling numbness of upper extremity and around the mouth but today she denies these symptoms but has persistent headache. In ER initial troponin negative but her heart rate goes up to 110 from 65 on walking. ER physician called on-call hospitalists for the admission and further evaluation. Patient denies fever chills nausea vomiting abdominal pain urinary or bowel complaint Past Med Surg Social Fam HX - Past Medical History Medical history: other Additional medical history: clotting disorder Psychiatric history: anxiety - Past Surgical History Additional surgical history: Dental surgery. - Social History Smoking Status: Never smoker Smokeless Tobacco Status: No Alcohol use: occasionally Drug use: none - Family History Grandmother Hx Family Cardiac Disorders: Yes Internal Medicine - H&P: Meds Celecoxib [Celebrex] 200 mg PO DAILY PRN 10/31/17 [History] Desmopressin Acetate [Stimate] 2 spray NS DAILY PRN 10/31/17 [History] Medroxyprogesterone Acetate [DEPO-Provera] 150 mg IM [id number] 10/31/17 [History] Omeprazole [PriLOSEC] 40 mg PO DAILY 10/31/17 [History] Tranexamic Acid [Lysteda] 2,600 mg PO TID PRN 10/31/17 [History] 3 Allergy/AdvReac Type Severity Reaction Status Date / Time sulfamethoxazole Allergy See Verified 11/03/17 16:00 [From Bactrim] Comments trimethoprim [From Bactrim] Allergy See Verified 11/03/17 16:00 Comments diphenhydramine AdvReac Rash Verified 11/03/17 16:00 ibuprofen AdvReac See Verified 11/03/17 16:00 Comments nalbuphine [From Nubain] AdvReac Difficulty Verified 11/03/17 16:00 Breathing All Systems PM: A 10-system review of systems was performed and is negative for pertinent findings except as documented above in the HPI. - Constitutional Vitals: Temp Pulse Resp BP Pulse Ox 99.5 F 68 18 104/73 100 11/03/17 22:01 11/03/17 22:01 11/03/17 22:01 11/03/17 22:01 11/03/17 22:01 Exam: General appearance: No acute distress, A&O X 3 Head exam: Atraumatic Eye exam: EOMI, PERRLA ENT exam: Moist oral mucosa Neck nontender, supple Respiratory exam: Clear to auscultation bilaterally Cardiovascular exam: Regular rate and rhythm, no systolic murmur Abdominal exam: Soft, nontender, nondistended, positive bowel sounds Extremities exam: No calf tenderness, no pedal edema Present: Skin-no rash, warm, dry, intact Neurological exam: Alert, awake, oriented 3, CN II-XII intact, no focal deficits. No facial droop. Normal speech. Normal gait but get dizzy. Internal Med - H&P Results - Labs CBC & Chem 7: 11/03/17 16:37 11/03/17 16:37 - Assessment and plan (1) Chest pain Current Visit: Yes Status: Acute Assessment and plan: Persistent but get worse on exertion associated with symptom like dizziness, lightheadedness and shortness of breath. During last admission CT angiogram echocardiogram with no acute finding. Will admit patient in telemetry bed with serial troponin. Consulted cardiology and talk to Dr. Ruggiero for further evaluation. BNP and d-dimer also ordered Qualifiers: Chest pain type: unspecified Qualified Code(s): R07.9 - Chest pain, unspecified (2) Headache Current Visit: Yes Status: Acute Assessment and plan: Persistent headache but no associated focal neurological symptom. CT brain with no acute finding. MRI brain ordered. Will consult neurologist if needed. Qualifiers: Headache type: unspecified Qualified Code(s): R51 - Headache (3) DVT prophylaxis Current Visit: No Status: Acute Assessment and plan: SCDs - Time Spent With Patient Total time spent is greater than 50% in coordination of care (as documented) at patient's floor/unit and/or counseling patient: 25 - 35 minutes
[2017-11-03] MEDS ORDERED: Naloxone 0.4 MG/ML INJ IVP PRN (22:35)
[2017-11-03] MEDS: 0.9 % Sodium Chloride 1,000 ML IVC SCH (23:45)
[2017-11-03 23:54] LABS: Prothrombin Time 11.5 Seconds (9.4-12.1)
[2017-11-03 23:57] LABS: Activated Partial Thrombo Time 33.3 Seconds (26.0-36.0)
[2017-11-04] MEDS ORDERED: Melatonin 3 MG TABLET PO ONE (03:19)
[2017-11-04 04:39] LABS: Basophils # 0.1 K/mcL (0.0-0.2); Basophils % 0.8 %; Eosinophils # 0.3 K/mcL (0.0-0.6); Eosinophils % 3.9 %; Hematocrit 40.2 % (35.3-44.9); Hemoglobin 13.4 g/dL (11.5-15.4); Immature Granulocytes % 0.3 % (0-4); Lymphocytes # 3.3 K/mcL (0.6-4.6); Lymphocytes % 43.5 %; Mean Corpuscular HGB Conc 33.3 g/dL (31.6-35.5); Mean Corpuscular Hemoglobin 28.2 pg (28.0-33.3); Mean Corpuscular Volume 84.5 fL (83.0-100.0); Mean Platelet Volume 10.7 fL (9.4-12.4); Monocytes # 0.5 K/mcL (0.0-1.3); Monocytes % 6.4 %; Neutrophils # 3.4 K/mcL (1.6-8.9); Platelet Count 245 K/mcL (140-400); Red Blood Count 4.76 M/mcL (3.82-4.97); Red Cell Distribution Width 11.9 % (11.5-14.5); Segmented Neutrophils % 45.1 %
[2017-11-04 05:02] LABS: BUN/Creatinine Ratio 14 (6-26); Blood Urea Nitrogen 12 mg/dL (6-20); Calcium 9.5 mg/dL (8.6-10.3); Carbon Dioxide 21 mEq/L (23-29); Chloride 113 mEq/L (98-107); Chol/HDL Ratio 4.5 (0-4.9); Cholesterol 135 mg/dL (< 200); Glucose 106 mg/dL (70-105); HDL Cholesterol 30 mg/dL (40-59); LDL Cholesterol,Calculated 79 mg/dL (0-99); Osmolality,Calculated 290 (280-300); Sodium 140 mEq/L (136-145); Triglycerides 132 mg/dL (< 150); eGFR For African Americans > 60 (> 60); eGFR For Non-African Americans > 60 (> 60)
--- NOTE | 2017-11-04 09:16 | Cardiology Consult Note ---
<Mitesh Schneider R - Last Filed: 11/04/17 09:57> Date of Encounter: 11/04/17 Time of Encounter: 09:13 Assessment and Plan (1) Chest pain Current Visit: Yes Status: Acute Constant chest pain since Thursday, described as midsternal tightness, worse on exertion but also present at rest, associated with palpitations, dizziness, dyspnea. Troponins negative x 3. Chest CTA 10/31/17 negative for PE or dissection. EKG no ischemic findings. Pt has Guillermina Danlos syndrome-- connective tissue disorder that does raise concerns for issues with aorta. However, chest CTA did not show any aneurysm or dissection. Symptoms started after she had been on weight loss pill Adipex for 3 weeks. Stopped Adipex Thursday. TTE 10/31/17 EF 60-65%, no significant findings. Symptoms are atypical given pain has been constant since Thursday. Suspect combination of medication (Adipex) and anxiety. Discussed and reviewed with Dr. Roverto Ruggiero. No further cardiac work-up warranted. Anticipate sign off once seen and evaluated by him. Qualifiers: Chest pain type: unspecified Qualified Code(s): R07.9 - Chest pain, unspecified (2) Tachycardia Current Visit: No Status: Resolved Pt reports tachycardia on Thursday--suspect secondary to Adipex, and when standing /walking. AVG HR on telemetry 72. No significant events on tele. Do no see any documented episodes of inappropriate tachycardia. TTE EF preserved. Discussion w patient/family: The assessment and plan as outlined above was discussed with the patient and/or family members who expressed understanding and agreement. All questions were answered. Thank you for involving us in the care of your patient. Please call with any questions. I will discuss all the above with Dr. Roverto uRggiero and make changes as necessary. History of Present Illness Consult date: 11/04/17 Requesting physician: Malry Sahu Consult reason: chest pain Chief complaint: chest pain History of present illness: Ms. Carr is a 22 year old female with PMH of Ehler Danlos syndrome, clotting disorder--per pt missing a clotting factor, admitted for persistent chest pain that started Thursday. She was initially admitted Thursday, had negative troponins, no significant finding on TTE and negative chest CTA and was discharged home. Pt has continued to have persistent chest pain at rest, worse on exertion associated with dizziness, palpitations and shortness of breath. She reports she had been taking the weight loss supplement Adipex for 3 weeks, last dose was on Thursday. Troponins negative. EKG unremarkable. Past Med Surg Social Fam HX - Past Medical History Medical history: other Additional medical history: clotting disorder Psychiatric history: anxiety - Past Surgical History Additional surgical history: Dental surgery. - Social History Smoking Status: Never smoker Smokeless Tobacco Status: No Alcohol use: occasionally Drug use: none - Family History Grandmother Hx Family Cardiac Disorders: Yes Medications and Allergies Celecoxib [Celebrex] 200 mg PO DAILY PRN 10/31/17 [History] Desmopressin Acetate [Stimate] 2 spray NS DAILY PRN 10/31/17 [History] Medroxyprogesterone Acetate [DEPO-Provera] 150 mg IM [id number] 10/31/17 [History] Omeprazole [PriLOSEC] 40 mg PO DAILY 10/31/17 [History] Tranexamic Acid [Lysteda] 2,600 mg PO TID PRN 10/31/17 [History] 3 Allergy/AdvReac Type Severity Reaction Status Date / Time sulfamethoxazole Allergy See Verified 11/03/17 16:00 [From Bactrim] Comments trimethoprim [From Bactrim] Allergy See Verified 11/03/17 16:00 Comments diphenhydramine AdvReac Rash Verified 11/03/17 16:00 ibuprofen AdvReac See Verified 11/03/17 16:00 Comments nalbuphine [From Nubain] AdvReac Difficulty Verified 11/03/17 16:00 Breathing All Systems Review: The remainder of the systems were reviewed and are negative Physical Examination Vital Signs, Last 4 Hours Temp Pulse Resp BP Pulse Ox 11/04/17 07:27 98.2 F 66 14 106/63 98 Vital Signs Temp Pulse Resp BP Pulse Ox 11/04/17 07:27 98.2 F 66 14 106/63 98 11/04/17 03:25 97.9 F 69 16 98/56 99 11/04/17 00:12 98.4 F 75 16 110/72 98 11/03/17 22:01 99.5 F 68 18 104/73 100 11/03/17 21:06 18 112/77 11/03/17 20:54 81 20 105/68 98 11/03/17 15:57 98.1 F 122 16 115/71 98 Intake and Output 11/03/17 11/04/17 11/04/17 23:59 07:59 15:59 Intake Total 0 / 0 0 / 0 Output Total 0 / 0 0 / 0 Balance 0 / 0 0 / 0 Intake: Oral 0 / 0 0 / 0 Output: Urine 0 / 0 0 / 0 Other: Weight 84.368 kg Patient Weight 11/04/17 23:59 Weight 84.368 kg General: Conversant, No Apparent Distress HEENT: Atraumatic, Normocephaly, Mucus Membranes Moist Neck: No JVD, Normal carotid pulses Cardiac: Reg Rate and Rhythm, Normal S1 and S2, No Murmur Lungs: Normal Breath Sounds, No Wheeze, Rales, Rhonchi Neuro: Alert and responsive, No focal deficits noted Abdomen: Soft, Non-Tender Skin: No rashes noted on visualized skin Musculoskeletal: No Chest Wall Tenderness Extremities: No Clubbing, No Cyanosis, No Edema, Normal Pulses Results 11/04/17 04:28 11/04/17 04:28 Lab Results 11/03/17 11/03/17 11/03/17 22:35 22:37 22:38 WBC Hgb Hct Plt Count INR 1.0 APTT 33.3 D-Dimer 304 Sodium Potassium Chloride Carbon Dioxide BUN Creatinine Glucose Calcium Troponin I B-Natriuretic Peptide 7 11/03/17 11/04/17 11/04/17 22:45 04:28 04:28 WBC 7.5 Hgb 13.4 Hct 40.2 Plt Count 245 INR APTT D-Dimer Sodium 140 Potassium 4.0 Chloride 113 H Carbon Dioxide 21 L BUN 12 Creatinine 0.86 Glucose 106 H Calcium 9.5 Troponin I < 0.03 B-Natriuretic Peptide 11/04/17 04:28 WBC Hgb Hct Plt Count INR APTT D-Dimer Sodium Potassium Chloride Carbon Dioxide BUN Creatinine Glucose Calcium Troponin I < 0.03 B-Natriuretic Peptide Short CBC 11/04/17 11/03/17 Range/Units 04:28 16:37 WBC 7.5 6.1 (4.3-11.1) K/mcL Hgb 13.4 14.3 (11.5-15.4) g/dL Hct 40.2 42.2 (35.3-44.9) % Plt Count 245 256 (140-400) K/mcL Neutrophils # 3.4 3.3 (1.6-8.9) K/mcL BMP 11/04/17 11/03/17 Range/Units 04:28 16:37 Sodium 140 139 (136-145) mEq/L Potassium 4.0 3.7 (3.5-5.1) mEq/L Chloride 113 H 110 H (98-107) mEq/L Carbon Dioxide 21 L 22 L (23-29) mEq/L BUN 12 12 (6-20) mg/dL Creatinine 0.86 0.91 (0.60-1.20) mg/dL Glucose 106 H 151 H (70-105) mg/dL Calcium 9.5 9.8 (8.6-10.3) mg/dL Cardiac Enzymes 11/04/17 11/03/17 11/03/17 Range/Units 04:28 22:45 16:37 Troponin I < 0.03 < 0.03 < 0.03 (< 0.04) ng/mL Urine 11/03/17 Range/Units 19:04 Urine Color Yellow (Yellow) Urine Clarity Clear (Clear) Urine pH 6.5 (5.0-8.0) pH Units Ur Specific [place] 1.017 (1.010-1.025) Urine Protein Negative (Neg-Trace) mg/dL Urine Glucose (UA) Normal (Normal) mg/dL Impressions Chest X-Ray 11/03/17 16:05 IMPRESSION: No acute cardiopulmonary disease. D/ / Marty Jett MD / Marty Jett MD Interpreting Provider: Marty Jett MD Head CT 11/03/17 18:45 IMPRESSION: No acute intracranial abnormality. D/ / Brittany Velez MD / Brittany Velez MD Interpreting Provider: Brittany Velez MD Active Medications Acetaminophen (Tylenol) 650 mg PO Q6HR PRN PRN Reason: Pain Stop: 05/06/18 09:30 Sodium Chloride (0.9 % Sodium Chloride) 1,000 mls @ 50 mls/hr IVC .Q20H GEMA Stop: 05/05/18 22:46 Last Admin: 11/03/17 23:45 Dose: 50 mls/hr Naloxone HCl (Narcan) 0.4 mg IVP Q2MIN PRN PRN Reason: SEE COMMENTS Stop: 05/05/18 22:36 - Imaging and Cardiology Echo: report reviewed - EKG Interpretation EKG results cardiology: personally reviewed, other (12 hr tele AVG HR 73, SR) Consult Discharge Plan - Plan Referrals: NONE,PCP [Primary Care Provider] - <Roverto Ruggiero - Last Filed: 11/04/17 10:49> Date of Encounter: 11/04/17 - Attending Attestation I have personally performed a face to face evaluation on this patient. I have reviewed and agree with the care plan. History and Exam by me shows: 22 yo presents with atypical chest pain. Previous cardiac workup has been negative. Constant chest pain for several days with negative cardiac enzymes. chest CT negative. Doubt a cardiac cause of symptoms. Assessment and Plan Discussion w patient/family: The assessment and plan as outlined above was discussed with the patient and/or family members who expressed understanding and agreement. All questions were answered. Thank you for involving us in the care of your patient. Please call with any questions. History of Present Illness History of present illness: Ms. Carr is a 22 year old female All Systems Review: The remainder of the systems were reviewed and are negative Physical Examination Vital Signs, Last 4 Hours Temp Pulse Resp BP Pulse Ox 11/04/17 07:27 98.2 F 66 14 106/63 98 Results 11/04/17 04:28 11/04/17 04:28 Lab Results 11/03/17 11/03/17 11/03/17 22:35 22:37 22:38 WBC Hgb Hct Plt Count INR 1.0 APTT 33.3 D-Dimer 304 Sodium Potassium Chloride Carbon Dioxide BUN Creatinine Glucose Calcium Troponin I B-Natriuretic Peptide 7 11/03/17 11/04/17 11/04/17 22:45 04:28 04:28 WBC 7.5 Hgb 13.4 Hct 40.2 Plt Count 245 INR APTT D-Dimer Sodium 140 Potassium 4.0 Chloride 113 H Carbon Dioxide 21 L BUN 12 Creatinine 0.86 Glucose 106 H Calcium 9.5 Troponin I < 0.03 B-Natriuretic Peptide 11/04/17 04:28 WBC Hgb Hct Plt Count INR APTT D-Dimer Sodium Potassium Chloride Carbon Dioxide BUN Creatinine Glucose Calcium Troponin I < 0.03 B-Natriuretic Peptide
[2017-11-04] MEDS: Acetaminophen 325 MG TABLET PO PRN ×3 (10:07→22:26)
--- NOTE | 2017-11-04 16:11 | Internal Med Progress Note ---
Date of Encounter: 11/04/17 Time of Encounter: 12:30 - Assessment and plan (1) Chest pain Current Visit: Yes Status: Acute Assessment and plan: Persistent constant chest pain since thursday midsternal and to the R. shoulder Also reports some palpitations and dizziness. Troponin negative x 3. EKG ischemic changes on EKG. CT chest negative for PE or other notable pathology. Cardiology evaluated. Recomendations appreciated. Reports taking Adipex for the past 3 weeks until she started having he chest pain on Thursday and had stopped since then. Will monitor until tomorrow. Symptomatic treatment for pain at this time. Likely discharge home tomorrow. Qualifiers: Chest pain type: unspecified Qualified Code(s): R07.9 - Chest pain, unspecified (2) Headache Current Visit: Yes Status: Acute Assessment and plan: Persistent headache but no associated focal neurological symptom. CT brain with no acute finding. MRI brain ordered. If improved with no significant findings, will discharge home for symptomatic treatment. Consider neurology consult or to follow up as outpatient if no improvement. Qualifiers: Headache type: unspecified Qualified Code(s): R51 - Headache (3) Tachycardia Current Visit: Yes Status: Acute Assessment and plan: Tachycardia with exertion since thursday. Likely 2/2 adipex use. Cardiology evaluated. No episodes of tachycardia noted on Tele. - Time Spent With Patient Total time spent is greater than 50% in coordination of care (as documented) at patient's floor/unit and/or counseling patient: - Subjective Interval history: Reports persistent chest pain and headache but much better than on presentation. Denies any other complaints. - Constitutional Vitals: Temp Pulse Resp BP Pulse Ox 98.3 F 70 16 107/62 97 11/04/17 11:06 11/04/17 11:06 11/04/17 11:06 11/04/17 11:06 11/04/17 11:06 Exam: General: Alert and oriented. No acute distress. Skin: Normal color, no rash, no lesions. HEENT: EOMI, pupils equal, round and reactive. Cardiovascular: Regular rate, regular rhythm. No murmurs appreciated. Lungs:Normal breath sounds, no wheezes or crackles. Abdomen:Soft, non-tender, no rigidity. Extremities:No deformity, no edema or tenderness, no joint swelling or clubbing. Neurological:Normal cognition, no weakness, no numbness. Rest of the physical exam is non contributory Internal Medicine: Result - Labs CBC & Chem 7: 11/04/17 04:28 11/04/17 04:28 Labs: Short CBC 11/04/17 Range/Units 04:28 WBC 7.5 (4.3-11.1) K/mcL Hgb 13.4 (11.5-15.4) g/dL Hct 40.2 (35.3-44.9) % Plt Count 245 (140-400) K/mcL Neutrophils # 3.4 (1.6-8.9) K/mcL BMP 11/04/17 04:28 Sodium 140 Potassium 4.0 Chloride 113 H Carbon Dioxide 21 L BUN 12 Creatinine 0.86 Glucose 106 H Calcium 9.5 Cardiac Enzymes 11/03/17 11/04/17 11/04/17 Range/Units 22:45 04:28 10:33 Troponin I < 0.03 < 0.03 < 0.03 (< 0.04) ng/mL - ABG Interpretation ABG results: PT/INR, D-dimer PT 11.5 Seconds (9.4-12.1) 11/03/17 22:35 D-Dimer 304 ng/mLFEU (0-500) 11/03/17 22:38 - VTE Documentation of Mechanical Device: Intermittent pneumatic compression device Consult Discharge Plan - Plan Referrals: NONE,PCP [Primary Care Provider] -
[2017-11-04] MEDS: 0.9 % Sodium Chloride 1,000 ML IVC SCH (16:26)
[2017-11-05] MEDS: Acetaminophen 325 MG TABLET PO PRN ×2 (04:29→08:23)
[2017-11-05 06:24] LABS: Basophils # 0.1 K/mcL (0.0-0.2); Eosinophils # 0.4 K/mcL (0.0-0.6); Eosinophils % 5.9 %; Hematocrit 38.4 % (35.3-44.9); Hemoglobin 12.8 g/dL (11.5-15.4); Immature Granulocytes % 0.3 % (0-4); Lymphocytes # 2.9 K/mcL (0.6-4.6); Lymphocytes % 39.9 %; Mean Corpuscular HGB Conc 33.3 g/dL (31.6-35.5); Mean Corpuscular Hemoglobin 27.8 pg (28.0-33.3); Mean Corpuscular Volume 83.3 fL (83.0-100.0); Mean Platelet Volume 10.7 fL (9.4-12.4); Monocytes # 0.5 K/mcL (0.0-1.3); Monocytes % 6.9 %; Neutrophils # 3.4 K/mcL (1.6-8.9); Platelet Count 236 K/mcL (140-400); Red Blood Count 4.61 M/mcL (3.82-4.97); Red Cell Distribution Width 12.2 % (11.5-14.5)
[2017-11-05 06:44] LABS: Alanine Aminotransferase 13 Units/L (7-52); Albumin 4.2 g/dL (3.5-5.7); Alkaline Phosphatase 55 Units/L (34-104); Aspartate Amino Transferase 13 Units/L (13-39); BUN/Creatinine Ratio 13 (6-26); Bilirubin,Total 0.3 mg/dL (0.3-1.0); Blood Urea Nitrogen 10 mg/dL (6-20); Calcium 9.2 mg/dL (8.6-10.3); Carbon Dioxide 22 mEq/L (23-29); Chloride 114 mEq/L (98-107); Globulin 2.1 g/dL (2.4-3.5); Glucose 83 mg/dL (70-105); Osmolality,Calculated 286 (280-300); Potassium 3.8 mEq/L (3.5-5.1); Sodium 139 mEq/L (136-145); Total Protein 6.3 g/dL (6.4-8.9); eGFR For African Americans > 60 (> 60); eGFR For Non-African Americans > 60 (> 60)
--- NOTE | 2017-11-05 08:39 | Electrocardiograph Report ---
[place] [id number] Test Date: 2017-11-03 Pat Name: Zee Carr Department: 102 Room: [facility] Gender: F [employer]: Morgan : 1995 Requested By: Augustus Henley Order Number: [id number] Reading MD: Chadwick Sargent Measurements Intervals [place] Rate: 100 P: 36 TX: 146 QRS: 14 QRSD: 82 T: 11 QT: 319 QTc: 376 Interpretive Statements SINUS TACHYCARDIA Electronically Signed On 11-05-2017 8:37:35 EDT by Chadwick Sargent
[2017-11-05 12:01] VITALS: BP 100/58
--- NOTE | 2017-11-05 12:47 | Discharge Summary ---
- NOTES TO OUTPATIENT PROVIDER Notes to Outpatient Provider: Please follow up with PMD and neurology about headache. CT and MRI negative. Date of Encounter: 11/05/17 Time of Encounter: 09:00 - Discharge Diagnosis (1) Chest pain Priority: Primary Status: Acute Comments: Persistent constant chest pain since thursday midsternal and to the R. shoulder now had improved Also reports some palpitations and dizziness. Troponin negative x 3. EKG ischemic changes on EKG. CT chest negative for PE or other notable pathology. Cardiology evaluated. Recomendations appreciated. Reports taking Adipex for the past 3 weeks until she started having he chest pain on Thursday likely to be etiology Qualifiers: Chest pain type: unspecified Qualified Code(s): R07.9 - Chest pain, unspecified (2) Headache Priority: Secondary Status: Acute Assessment and Plan: Persistent headache but no associated focal neurological symptom. Partial relieved with Tylenol CT brain with no acute finding. MRI brain also negative. Will discharge for neurology follow up. Qualifiers: Headache type: unspecified Qualified Code(s): R51 - Headache (3) Tachycardia Priority: Secondary Status: Acute Assessment and Plan: Tachycardia with exertion had improved Likely 2/2 adipex use. Cardiology evaluated. No episodes of tachycardia noted on Tele. Low risk for cardiac etiology. C Hospital course: Ms. Carr is a 22 year old female with PMH Ehler danlos syndrome presented to the ED c/o chest pain, tachycardia and headaches. Patient was admitted for serial troponin monitoring which was all negative. Reported tachycardia was not observed and both HR and chest pain had improved. Patient admitted to recen Adipex use which likely had caused her symptoms. Stable for discharge with some improvement in headaches. CT and MRI showed no abnormalities. To be discharged to follow up with PMD as well as referral to neurology. Discharge discussed with: patient, nurse, social work - Time Spent with Patient Total time spent providing and/or coordinating discharge services: - Discharge Medications Home Medications: Celecoxib [Celebrex] 200 mg PO DAILY PRN 10/31/17 [History] Desmopressin Acetate [Stimate] 2 spray NS DAILY PRN 10/31/17 [History] Medroxyprogesterone Acetate [Depo-Provera] 150 mg IM [id number] 10/31/17 [History] Omeprazole [PriLOSEC] 40 mg PO DAILY 10/31/17 [History] Tranexamic Acid [Lysteda] 2,600 mg PO TID PRN 10/31/17 [History] Acetaminophen [Tylenol] 650 mg PO Q6HR PRN tablet 11/05/17 [Rx] Allergies/Adverse Reactions: 3 Allergy/AdvReac Type Severity Reaction Status Date / Time sulfamethoxazole Allergy See Verified 11/03/17 16:00 [From Bactrim] Comments trimethoprim [From Bactrim] Allergy See Verified 11/03/17 16:00 Comments diphenhydramine AdvReac Rash Verified 11/03/17 16:00 ibuprofen AdvReac See Verified 11/03/17 16:00 Comments nalbuphine [From Nubain] AdvReac Difficulty Verified 11/03/17 16:00 Breathing Date of admission: 11/03/17 21:28 Primary care physician: PCP NONE Consults: 11/03/17 22:40 Consult to Cardiology [CONS] Routine Comment: Consulting Provider: Cardiology Mary Reason for Consult: Persistent chest pain Call Completed: Yes - Constitutional Vitals: Temp Pulse Resp BP Pulse Ox 98.5 F 76 14 100/58 98 11/05/17 11:58 11/05/17 11:58 11/05/17 11:58 11/05/17 11:58 11/05/17 11:58 Exam: General: Alert and oriented Skin: Normal color, no rash, no lesions. HEENT: EOMI, pupils equal, round and reactive. Cardiovascular: Regular rate, regular rhythm. No murmurs appreciated. Lungs:Normal breath sounds, no wheezes or crackles. Abdomen:Soft, non-tender, no rigidity. Extremities:No deformity, no edema or tenderness, no joint swelling or clubbing. Neurological:Normal cognition, no weakness, no numbness. Rest of the physical exam is non contributory - Patient Status Disposition: Home, Self-Care Condition: Fair Overall status at discharge: patient is progressing back to baseline - Discharge Instructions Instructions: Chest Pain (DC) Follow Up With: NONE,PCP [Primary Care Provider] - - Diet and Activity Activity: resume usual activities as tolerated - VTE Documentation of Mechanical Device: Intermittent pneumatic compression device
== END 2017-11-05 14:22 | disposition home or self-care (01) ==
LOC: 2ANU 15:47 → EMEROO 15:47 → SUATTDRO 21:28 → 2ANU 21:40
PROVIDERS: ADMIT Internal Medicine; ATTEND Student in an Organized Health Care Education/Training Program

== ENCOUNTER 2019-02-21 19:08 | Observation (INO) ==
[2019-02-21 19:50] LABS: Bilirubin,Urine Negative (Negative); Blood,Urine Large (Negative); Clarity,Urine Cloudy (Clear); Color,Urine Yellow (Yellow); Glucose,Urine (UA) Normal (Normal); Ketones,Urine 40 mg/dL (Negative); Leukocyte Esterase,Urine Small (Negative); Nitrite,Urine Negative (Negative); PH,Urine 6.5 pH Units (5.0-8.0); Protein,Urine 30 mg/dL (Neg-Trace); Specific Gravity,Urine 1.012 (1.010-1.025); Urobilinogen,Urine Normal (Normal)
[2019-02-21 19:53] LABS: Bacteria,Urine None Seen per hpf (None-Few); Hyaline Casts,Urine None Seen per lpf (None-Few); Squamous Epithelial Cell,Urine Many per lpf (None-Few); WBC,Urine 15-30 per hpf (0-3)
[2019-02-21] MEDS ORDERED: Ondansetron 4 MG/2 ML VIAL IVP ONE (20:46)
[2019-02-21] MEDS ORDERED: *HR* HYDROmorphone (PF) 1 MG/ML SYRINGE IVP ONE (20:46)
[2019-02-21 20:59] LABS: Basophils # 0.1 K/mcL (0.0-0.2); Basophils % 0.3 %; Eosinophils % 0.2 %; Hematocrit 43.4 % (35.3-44.9); Immature Granulocytes % 0.6 % (0-4); Lymphocytes # 2.1 K/mcL (0.6-4.6); Lymphocytes % 9.6 %; Mean Corpuscular HGB Conc 32.3 g/dL (31.6-35.5); Mean Corpuscular Hemoglobin 27.9 pg (28.0-33.3); Mean Corpuscular Volume 86.5 fL (83.0-100.0); Mean Platelet Volume 10.6 fL (9.4-12.4); Monocytes # 2.2 K/mcL (0.0-1.3); Monocytes % 10.2 %; Neutrophils # 17.2 K/mcL (1.6-8.9); Platelet Count 335 K/mcL (140-400); Red Blood Count 5.02 M/mcL (3.82-4.97); Red Cell Distribution Width 12.1 % (11.5-14.5); Segmented Neutrophils % 79.1 %; White Blood Count 21.7 K/mcL (4.3-11.1)
[2019-02-21 21:56] LABS: Alanine Aminotransferase 17 Units/L (7-52); Albumin 4.8 g/dL (3.5-5.7); Albumin/Globulin Ratio 1.4 (1.1-2.2); Alkaline Phosphatase 88 Units/L (34-104); Aspartate Amino Transferase 17 Units/L (13-39); BUN/Creatinine Ratio 8 (6-26); Bilirubin,Direct 0.2 mg/dL (0.0-0.2); Bilirubin,Indirect 0.7 mg/dL (0.0-1.0); Bilirubin,Total 0.9 mg/dL (0.3-1.0); Blood Urea Nitrogen 7 mg/dL (6-20); Calcium 9.9 mg/dL (8.6-10.3); Carbon Dioxide 24 mEq/L (23-29); Chloride 99 mEq/L (98-107); Globulin 3.4 g/dL (2.4-3.5); Glucose 114 mg/dL (70-105); Lipase 16 Units/L (11-82); Osmolality,Calculated 279 (280-300); Potassium 3.9 mEq/L (3.5-5.1); Sodium 135 mEq/L (136-145); Total Protein 8.2 g/dL (6.4-8.9); eGFR For African Americans > 60 (> 60); eGFR For Non-African Americans > 60 (> 60)
[2019-02-21] MEDS ORDERED: Piperacillin/Tazobactam 3.375 GM in 0.9 % Sodium Chloride Mini Bag 100 ML IVPB ONE (22:02)
[2019-02-21 22:55] LABS: INR 1.3; Prothrombin Time 14.2 Seconds (9.4-12.1)
[2019-02-21] MEDS ORDERED: Desmopressin Acetate SPRAY 5 ML BOTTLE NS PRN (23:24)
[2019-02-21] MEDS ORDERED: TRANEXAMIC ACID 1300 MG PO PRN (23:24)
[2019-02-21] MEDS ORDERED: 0.9 % Sodium Chloride 1,000 ML IVC SCH (23:24)
[2019-02-22] MEDS: Ondansetron 4 MG/2 ML VIAL IVP PRN ×3 (04:29→21:54)
[2019-02-22 05:46] LABS: Hematocrit 36.6 % (35.3-44.9); Hemoglobin 12.8 g/dL (11.5-15.4); Mean Corpuscular Hemoglobin 28.8 pg (28.0-33.3); Mean Corpuscular Volume 82.4 fL (83.0-100.0); Mean Platelet Volume 10.5 fL (9.4-12.4); Platelet Count 305 K/mcL (140-400); Red Blood Count 4.44 M/mcL (3.82-4.97); White Blood Count 14.3 K/mcL (4.3-11.1)
[2019-02-22] MEDS ORDERED: Piperacillin/Tazobactam 3.375 GM in 0.9 % Sodium Chloride Mini Bag 100 ML IVPB SCH (08:00)
[2019-02-22] MEDS: Topiramate 25 MG TABLET PO SCH ×2 (08:50→09:05)
[2019-02-22] MEDS ORDERED: SUMAtriptan succinate 50 MG TABLET PO PRN ×2 (09:00→20:54)
[2019-02-22] MEDS ORDERED: Topiramate 25 MG TABLET PO PRN (09:19)
[2019-02-22] MEDS ORDERED: SODIUM CHLORIDE 0.9% IVPB ONE (14:00)
[2019-02-22] MEDS ORDERED: DESMOPRESSIN ACETATE IVPB ONE (14:00)
[2019-02-22] MEDS ORDERED: Lidocaine -MPF 2% 5 ML VIAL ONE (15:49)
[2019-02-22] MEDS ORDERED: *HR* HYDROmorphone (PF) 1 MG/ML SYRINGE IVP PRN (16:22)
[2019-02-22] MEDS ORDERED: *HR* Promethazine 25 MG/ML VIAL IVP PRN (16:22)
[2019-02-22] MEDS ORDERED: Ondansetron 4 MG/2 ML VIAL IVP ONE (16:22)
[2019-02-22] MEDS ORDERED: *HR* OxyCODONE Immed Rel 5 MG TABLET PO PRN (16:22)
[2019-02-22] MEDS ORDERED: *HR* Meperidine 25 MG/ML SYRINGE IVP PRN (16:22)
[2019-02-22] MEDS ORDERED: LYSTEDA PO SCH (18:00)
[2019-02-22] MEDS ORDERED: Lidocaine -MPF 2% 2 ML VIAL ONE ×2 (18:08)
[2019-02-22] MEDS ORDERED: Neostigmine Methylsulfate 3 MG/3 ML SYRINGE ONE ×2 (18:08→19:32)
[2019-02-22] MEDS ORDERED: *HR* Midazolam HCl 2 MG/2 ML VIAL ONE (18:08)
[2019-02-22] MEDS ORDERED: *HR* Propofol 200 MG/20 ML VIAL IVP ONE (18:08)
[2019-02-22] MEDS ORDERED: *HR* Succinylcholine 200 MG/10 ML VIAL IVP ONE (18:08)
[2019-02-22] MEDS ORDERED: *HR* FentaNYL (PF) 100 MCG/2 ML VIAL ONE ×2 (18:08→18:47)
[2019-02-22] MEDS ORDERED: Ondansetron 4 MG/2 ML VIAL ONE (18:08)
[2019-02-22] MEDS ORDERED: *HR* Rocuronium Bromide 50 MG/5 ML VIAL ONE (18:08)
[2019-02-22] MEDS ORDERED: Dexamethasone 4 MG/ML VIAL ONE (18:08)
[2019-02-22] MEDS ORDERED: Acetaminophen IV 1,000 MG/100 ML INFUS..BTL ONE (18:18)
[2019-02-22] MEDS ORDERED: *HR* HYDROMORPHONE 2 MG/ML VIAL ONE (19:21)
[2019-02-22] MEDS ORDERED: Celecoxib 200 MG CAPSULE PO PRN (20:54)
[2019-02-22] MEDS ORDERED: Desmopressin Acetate SPRAY 5 ML BOTTLE NS PRN (20:54)
[2019-02-22] MEDS: 0.9 % Sodium Chloride 1,000 ML IVC SCH (21:53)
[2019-02-23] MEDS: Piperacillin/Tazobactam 3.375 GM in 0.9 % Sodium Chloride Mini Bag 100 ML IVPB SCH ×4 (00:17→23:24)
[2019-02-23] MEDS: TRANEXAMIC ACID 650 MG PO SCH ×3 (02:46→19:35)
[2019-02-23 05:22] LABS: Hematocrit 34.6 % (35.3-44.9); Hemoglobin 11.5 g/dL (11.5-15.4); Mean Corpuscular HGB Conc 33.2 g/dL (31.6-35.5); Mean Corpuscular Volume 84.4 fL (83.0-100.0); Mean Platelet Volume 10.7 fL (9.4-12.4); Platelet Count 275 K/mcL (140-400); Red Cell Distribution Width 11.9 % (11.5-14.5)
[2019-02-23] MEDS: 0.9 % Sodium Chloride 1,000 ML IVC SCH ×2 (10:49→23:24)
[2019-02-23] MEDS: Ondansetron 4 MG/2 ML VIAL IVP PRN (21:43)
[2019-02-24] MEDS: TRANEXAMIC ACID 650 MG PO SCH ×2 (03:27→09:43)
[2019-02-24 06:53] VITALS: BP 115/77
[2019-02-24 07:17] LABS: Hematocrit 33.8 % (35.3-44.9); Hemoglobin 11.2 g/dL (11.5-15.4); Mean Corpuscular HGB Conc 33.1 g/dL (31.6-35.5); Mean Corpuscular Hemoglobin 27.9 pg (28.0-33.3); Mean Corpuscular Volume 84.3 fL (83.0-100.0); Mean Platelet Volume 10.3 fL (9.4-12.4); Platelet Count 277 K/mcL (140-400); Red Blood Count 4.01 M/mcL (3.82-4.97); Red Cell Distribution Width 12.1 % (11.5-14.5); White Blood Count 9.6 K/mcL (4.3-11.1)
[2019-02-24] MEDS: Piperacillin/Tazobactam 3.375 GM in 0.9 % Sodium Chloride Mini Bag 100 ML IVPB SCH (09:12)
== END 2019-02-24 13:50 | disposition home or self-care (01) ==
LOC: 3ANU 19:08 → EMEROOARM 19:08 → 3ANU 22:46
PROVIDERS: ADMIT Family Medicine; ATTEND Surgery

== ENCOUNTER → 2021-10-14 00:40 | Observation (INO) ==
[2021-10-13 23:08] LABS: Basophils % 0.3 %; Eosinophils # 0.2 K/mcL (0.0-0.6); Eosinophils % 1.4 %; Hematocrit 31.4 % (35.3-44.9); Hemoglobin 10.5 g/dL (11.5-15.4); Immature Granulocytes % 0.5 % (0-4); Lymphocytes # 2.2 K/mcL (0.6-4.6); Lymphocytes % 14.1 %; Mean Corpuscular HGB Conc 33.4 g/dL (31.6-35.5); Mean Corpuscular Hemoglobin 28.4 pg (28.0-33.3); Mean Corpuscular Volume 84.9 fL (83.0-100.0); Mean Platelet Volume 9.7 fL (9.4-12.4); Monocytes # 1.1 K/mcL (0.0-1.3); Monocytes % 7.3 %; Neutrophils # 11.8 K/mcL (1.6-8.9); Platelet Count 342 K/mcL (140-400); Red Cell Distribution Width 13.2 % (11.5-14.5); Segmented Neutrophils % 76.4 %; White Blood Count 15.5 K/mcL (4.3-11.1)
[2021-10-13 23:27] LABS: Alanine Aminotransferase 17 Units/L (7-52); Aspartate Amino Transferase 11 Units/L (13-39); BUN/Creatinine Ratio 11 (6-26); Blood Urea Nitrogen 7 mg/dL (6-20); Lactate Dehydrogenase 132 Units/L (140-271); Uric Acid 4.1 mg/dL (2.3-7.6); eGFR For African Americans > 60 (> 60); eGFR For Non-African Americans > 60 (> 60)
[2021-10-13 23:30] LABS: Protein/Creatinine Ratio,Urine 0.28 mg/mg (0.00-0.20)
[~2021-10-14 00:40] MED LIST: Acetaminophen/Butalbital/CaffeineTABLET PO PRN
== END | disposition home or self-care (01) ==
LOC: 1NENULAB
PROVIDERS: ADMIT Obstetrics & Gynecology; ATTEND Obstetrics & Gynecology

== ENCOUNTER → 2021-11-15 16:00 | Observation (INO) ==
[2021-11-15 13:45] LABS: Bacteria,Urine Few per hpf (None-Few); Bilirubin,Urine Negative (Negative); Blood,Urine Negative (Negative); Clarity,Urine Turbid (Clear); Color,Urine Light-Yellow (Yellow); Glucose,Urine (UA) Normal (Normal); Ketones,Urine Negative (Negative); Leukocyte Esterase,Urine Negative (Negative); Mucus,Urine Few per lpf (None-Few); Nitrite,Urine Negative (Negative); PH,Urine 6.5 pH Units (5.0-8.0); Protein,Urine Trace mg/dL (Neg-Trace); RBC,Urine 0-3 per hpf (0-3); Specific Gravity,Urine 1.016 (1.010-1.025); Squamous Epithelial Cell,Urine Moderate per hpf (None-Few); Urobilinogen,Urine Normal (Normal)
== END | disposition home or self-care (01) ==
LOC: 1NENULAB
PROVIDERS: ADMIT Obstetrics & Gynecology; ATTEND Obstetrics & Gynecology

== ENCOUNTER → 2021-11-17 22:13 | Observation (INO) | END | disposition home or self-care (01) | LOC: 1NENULAB | PROVIDERS: ADMIT Obstetrics & Gynecology; ATTEND Obstetrics & Gynecology ==